=== PATIENT | male | born 1985 | race African-American/Black ===

== ENCOUNTER 2024-01-21 00:30 | Emergency (ER) | payer MEDICAID ==
[~2024-01-21] VITALS: Ht 165.1 cm; Wt 177.0 kg
[2024-01-21 01:12] VITALS: O2SAT 100
[2024-01-21 03:14] LABS: BASOPHILS % 0.7 % (0.0-2.0); EOSINOPHILS % 1.9 % (0.0-5.0); HEMATOCRIT. 45.8 % (42.0-52.0); HEMOGLOBIN. 15.9 g/dL (14.0-18.0); LYMPHOCYTES % 29.3 % (20.0-50.0); MEAN CORPUSCULAR HEMOGLOBIN 31.9 pg (28.0-32.0); MEAN CORPUSCULAR HGB CONC 34.7 g/dL (31.0-37.0); MEAN PLATELET VOLUME 8.4 fl (7.4-10.4); MONOCYTES % 7.2 % (2.0-8.0); NEUTROPHILS % 60.9 % (40.0-76.0); PLATELET 237 x1000/uL (130-400); RED BLOOD CELL COUNT 4.98 mill/uL (4.7-6.1); RED CELL DISTRIBUTION WIDTH 13.3 % (11.6-14.6); WHITE BLOOD COUNT 9.4 x1000/uL (4.5-11.0)
[2024-01-21 03:26] LABS: INR 0.9; PROTHROMBIN TIME 10.2 sec (9.6-11.0)
[2024-01-21 03:27] LABS: ALANINE AMINOTRANSFERASE 52 IU/L (10-49); ALBUMIN 4.7 g/dL (3.2-4.8); ASPARTATE AMINOTRANSFERASE 30 IU/L (<34); BILIRUBIN TOTAL 0.4 mg/dL (0.1-1.0); CALCIUM 9.8 mg/dL (8.7-10.4); CARBON DIOXIDE 29 mEq/L (21-32); CHLORIDE 104 mEq/L (98-107); CREATININE 0.8 mg/dL (0.6-1.3); GLUCOSE 113 mg/dL (70-105); POTASSIUM 4.2 mEq/L (3.5-5.1); PROTEIN TOTAL 7.2 g/dL (6.0-8.3); SODIUM 139 mEq/L (136-145); UREA NITROGEN BLOOD 12 mg/dL (9-23)
[2024-01-21 03:30] VITALS: BP 136/85; PULSE 61; RESP 18; TEMP 98.1
[2024-01-21] MEDS ORDERED: OXYM30SP26 BOTHNSTRLS (03:50)
== END 2024-01-21 04:00 | disposition home or self-care (01) ==
LOC: ER 00:30
DX: R04.0 Epistaxis (principal)
CPT/HCPCS: 36415; 80053; 85025; 86850; 86900; 99283